=== PATIENT | female | born 1985 | race Caucasian/White ===

== ENCOUNTER 2016-09-30 08:10 | Emergency (ER) | payer SELFPAY ==
[~2016-09-30] VITALS: Ht 160 cm; Wt 52.5 kg
[~2016-09-30 08:10] MED LIST: GABA300C10 PO
[2016-09-30] MEDS ORDERED: ONDANSETRON 2MG/ML, 2ML IVPush ONE (08:30)
[2016-09-30] MEDS ORDERED: SODIUM CHLORIDE 0.9% 1,000ML IV ONE (08:30)
[2016-09-30] MEDS ORDERED: ONDANSETRON 2MG/ML, 2ML ONE (08:38)
[2016-09-30 09:05] LABS: ASPARTATE AMINO TRANSFERASE 17 U/L (15-37); BLOOD UREA NITROGEN 7 mg/dL (7-18)
[2016-09-30] MEDS ORDERED: PROMETHAZINE 25 MG/ML, 1ML ONE (09:08)
[2016-09-30 09:24] LABS: DIFF TOTAL CELLS COUNTED 100 CELL DIFF
[2016-09-30 09:27] LABS: ANISOCYTOSIS 1+; VERIFY COUNTS? YES
[2016-09-30] MEDS ORDERED: PROMETHAZINE 25 MG/ML, 1ML IM ONE (09:30)
[2016-09-30 12:15] VITALS: BP 94/52
== END 2016-09-30 12:18 | disposition home or self-care (01) ==
LOC: ED 09:51
DX: S29.012A Strain of muscle and tendon of back wall of thorax, initial encounter (principal); G43.909 Migraine, unspecified, not intractable, without status migrainosus; X58.XXXA Exposure to other specified factors, initial encounter; Y93.89 Activity, other specified; Y99.8 Other external cause status; Y92.89 Other specified places as the place of occurrence of the external cause
CPT/HCPCS: 36415; 74176; 80053; 81001; 84703; 85025; 87077; 87086; 87186; 96361; 96372; 96374; 99285; J2405; J2550; J7030

== ENCOUNTER 2017-04-28 20:59 | Emergency (ER) | payer OTHER ==
[~2017-04-28] VITALS: Ht 160 cm; Wt 48.2 kg
[2017-04-28 21:00] VITALS: BP 112/74
[2017-04-28] MEDS ORDERED: LIDOCAINE-MPF 2% ,5ML ONE (21:40)
[2017-04-28] MEDS ORDERED: BUPIVACAINE 0.25% ONE (22:00)
[2017-04-28] MEDS ORDERED: LIDOCAINE 2%, 20ML SQ ONE (22:00)
[2017-04-28] MEDS ORDERED: BUPIVACAINE/PF-EPI 0.25% 1:200K SQ ONE (22:00)
== END 2017-04-28 22:49 | disposition home or self-care (01) ==
LOC: ED 21:25
DX: K04.7 Periapical abscess without sinus (principal); K02.9 Dental caries, unspecified; G43.909 Migraine, unspecified, not intractable, without status migrainosus
CPT/HCPCS: 41800; 99283